=== PATIENT | male | born 1945 | race Native Hawaiian/Other Pacific Islander ===

== ENCOUNTER 2019-08-18 05:44 | Day surgery (SDC) | payer MEDICARE ==
[~2019-08-18 05:44] MED LIST: LACTATED RINGERS 1,000 ML IV SCH
[2019-08-18] MEDS ORDERED: BUPIVACAINE-EPINEPHRINE/PF 0.5%-1:200,000 (30 ML) VIAL INFILTRATI ONE ×2 (07:21→08:12)
--- NOTE | 2019-08-18 07:32 | Anesthesia Day of Surgery ---
Anesthesia Day of Surgery - Day of Surgery Patient Examined: Yes Patient H&P Reviewed: Yes Patient is NPO: Yes
--- NOTE | 2019-08-18 07:32 | Anesthesia Consultation ---
Anesthesia Consult and Med Hx Date of service: 08/18/19 - Airway Anesthetic Teeth Evaluation: Poor, Partials ROM Head & Neck: Adequate Mental/Hyoid Distance: Adequate Mallampati Class: Class II Intubation Access Assessment: Probably Good - Pulmonary Exam CTA: Yes - Cardiac Exam Cardiac Exam: RRR - Pre-Operative Health Status ASA Pre-Surgery Classification: ASA2 Proposed Anesthetic Plan: MAC - Pulmonary Hx Asthma: Yes (last inhaler use 2-3wks ago) - Cardiovascular System Hx Hypertension: No Hx Heart Attack/AMI: No - Central Nervous System CVA: No Hx Psychiatric Problems: Yes (anxiety) - Gastrointestinal Hx Gastroesophageal Reflux Disease: No - Endocrine Hx Renal Disease: No Hx Liver Disease: No Hx Insulin Dependent Diabetes: No Hx Non-Insulin Dependent Diabetes: No Hx Thyroid Disease: No - Hematic Hx Anemia: No - Other Systems Hx Obesity: No - Additional Comments Anesthesia Medical History Comments: No hx anesthetic complications.
[2019-08-18] MEDS ORDERED: fentaNYL 100 MCG/2 ML INJ ONE (07:40)
[2019-08-18] MEDS ORDERED: PROPOFOL 200 MG/20 ML VIAL IV ONE (07:40)
[2019-08-18] MEDS ORDERED: LIDOCAINE MPF (2%) 20 MG/1 ML VIAL 5 ML ONE (07:40)
[2019-08-18] MEDS ORDERED: VANCOMYCIN/NS 1 GM/250 ML 1 GM/250 ML BAG IV ONE (08:00)
[2019-08-18] MEDS ORDERED: MIDAZOLAM 2 MG/2 ML INJ IV NR (08:00)
--- NOTE | 2019-08-18 08:35 | Discharge Summary ---
Short Stay Discharge Plan Activity: other (february d/c when stable. remove packing while in shower on Wednesday. cover incision with 4x4 and tape. rto Wednesday) Diet: regular Wound: other Additional Instructions: aleve I po q 6-8 hrs prn for breakthrough pain Follow up with: KINGSTON MARQUIS MD [Staff Physician] - 08/21/19
--- NOTE | 2019-08-18 08:54 | Operative Report ---
PREOPERATIVE DIAGNOSES: Presternal nodule, rule out lipoma and also a sebaceous cyst component. POSTOPERATIVE DIAGNOSES: Presternal nodule, rule out lipoma and also a sebaceous cyst component. Pending final pathology. PROCEDURE: Excision of aforementioned nodule. SURGEON: Bryan Renee MD ANESTHESIA: 0.5% Marcaine with epinephrine and IV sedation. COMPLICATIONS: No complications. PROCEDURE IN DETAIL: The patient was taken to the operating room. Approximately a 2 x 4 cm subcutaneous mass had been outlined with a marking pencil. A 0.5% Marcaine with epinephrine was infiltrated over the area to be incised. A 15 blade was used to incise skin and subcutaneous tissue. Double skin hooks and subsequently [place] retractors were used to retract the skin. Needle tip electrocautery as well as sharp and blunt dissection were used to remove the nodule. Grossly, this appears to be a lipoma, was also small lateral section that appears to be a sebaceous cyst. The sebum is noted that is encapsulated. The cecum was sent for aerobic and anaerobic cultures. The entire area was then irrigated copiously and dried. Checked for hemostasis and noted to be dry. The skin and subcutaneous were closed with a single layer interrupted 4-0 Prolene suture. The lateral most portion of the incision, which had this sebaceous cyst component, was left open and packed with quarter-inch iodoform gauze. Fluffs and pressure dressings applied. The patient tolerated the procedure well and left the OR in stable condition. JOB# [id number] ALVIN/JOANNA
--- NOTE | 2019-08-18 09:28 | Post Anesthesia Evaluation ---
- Post Anesthesia Evaluation Patient Participated: Yes Airway Patent: Yes Stable Respiratory Function: Yes Nausea/Vomiting: No Temp > 96.8F: Yes Pain Manageable: Yes Adequeate Hydration: Yes Anesthesia Complications: No
[2019-08-18 09:39] VITALS: BP 117/76
== END 2019-08-18 05:45 | disposition home or self-care (01) ==
LOC: OR 05:44
PROVIDERS: ATTEND Surgery
DX: R22.1 Localized swelling, mass and lump, neck (principal); D17.0 Benign lipomatous neoplasm of skin and subcutaneous tissue of head, face and neck; J43.9 Emphysema, unspecified; F41.9 Anxiety disorder, unspecified; Z98.890 Other specified postprocedural states; Z88.0 Allergy status to penicillin; Z79.899 Other long term (current) drug therapy; Z80.8 Family history of malignant neoplasm of other organs or systems
CPT/HCPCS: 21552; 87075; 87116; 88307; J2704; J3010; J3370; J7120; 88304